=== PATIENT | male | born 1975 | race Caucasian/White ===

== ENCOUNTER 2023-06-17 17:04 | Emergency (ER) | payer OTHER, SELFPAY ==
[2023-06-17 17:19] VITALS: BP 158/79; PULSE 87; RESP 16; TEMP 37; O2SAT 99
--- NOTE | 2023-06-17 17:26 | ED.URI ---
HPI - URI/Sore Throat General Chief Complaint: Unspecified Stated Complaint: stiff neck / feels awful History of Present Illness HPI Narrative: PATIENT PRESENTS WITH UPPER RESPIRATORY SYMPTOMS GENERALIZED BODY ACHES AND LEFT-SIDED NECK PAIN. PATIENT HAS NOT TAKEN ANYTHING FOR HIS PAIN AND DISCOMFORT NO TYLENOL IBUPROFEN NOTHING [id number]. PATIENT STATES HE HAS SLEPT MOST OF THE DAY BUT HAS NO FEVER NO SHORTNESS OF BREATH NO CHEST PAIN. Related Data Allergies Allergy/AdvReac Type Severity Reaction Status Date / Time No Known Allergies Allergy Unverified 11/26/17 11:01 Review of Systems Review of Systems: CONSTITUTIONAL: DENIES CHILLS, OR SWEATS. REPORTS FEVER AND GENERALIZED BODY ACHES EYES: DENIES VISUAL CHANGES, REDNESS, OR DISCHARGE. ENT: DENIES OTALGIA. REPORTS NASAL CONGESTION RUNNY NOSE AND SORE THROAT CARDIOVASCULAR: DENIES CHEST PAIN, PALPITATIONS, OR EDEMA. RESPIRATORY: DENIES DYSPNEA. REPORTS OCCASIONAL COUGH GASTROINTESTINAL: DENIES ABDOMINAL PAIN, NAUSEA, VOMITING, OR DIARRHEA. GENITOURINARY: DENIES DYSURIA OR HEMATURIA. SKIN: DENIES RASH OR ITCHING. MUSCULOSKELETAL: DENIES BACK PAIN, JOINT PAIN, OR MYALGIA. REPORTS GENERALIZED BODY ACHES NEUROLOGIC: DENIES HEADACHE, NUMBNESS, OR WEAKNESS. PSYCHIATRIC: DENIES ANXIETY OR DEPRESSION. PMFSH Comments AT TIME OF SIGNATURE, AGREE WITH NURSING PAST MEDICAL, SURGICAL, SOCIAL AND FAMILY HISTORY. THERE IS NO RELEVANT FAMILY HISTORY PERTINENT TO THE PRESENTING COMPLAINT Exam Narrative: THE PATIENT IS A WELL-DEVELOPED, WELL-NOURISHED IN NO ACUTE DISTRESS. SKIN: SKIN IS WARM AND DRY WITHOUT ERYTHEMA, SWELLING OR EXUDATE. THERE IS GOOD TURGOR. NO TENTING. HEAD: ATRAUMATIC. NORMOCEPHALIC. NO TEMPORAL OR SCALP TENDERNESS. EYES: MOIST AND BRIGHT. SCLERA AND CONJUNCTIVAE NORMAL. NO DISCHARGE. PERRLA. EXTRAOCULAR MOTIONS INTACT. GROSS VISUAL ACUITY INTACT. EARS: PINNA IS NORMAL SHAPE AND CONTOUR. CLEAR EXTERNAL AUDITORY CANALS. TM PEARLY LINARES WITH GOOD CONE OF LIGHT, NO ERYTHEMA OR SUPPURATION. BILATERAL CERUMEN NOTED NO GROSS HEARING DEFICIT. NOSE: PINK, MOIST MUCOSA WITH GOOD AIR MOVEMENT. CLEAR RHINORRHEA WITHOUT NASAL FLARING. SEPTUM MIDLINE. MOUTH: MOIST MUCOUS MEMBRANES. THROAT; MILD ERYTHEMA NOTED TO POSTERIOR OROPHARYNX WITH MODERATE POSTNASAL DRAINAGE. WITHOUT EXUDATE OR ULCERATION.. UVULA MIDLINE. NORMAL MOVEMENT OF SOFT PALATE. NECK: SUPPLE AND NONTENDER WITH FULL RANGE OF MOTION WITHOUT DISCOMFORT. NO MENINGEAL SIGNS. PAIN TO LEFT SIDE OF NECK WITH MOVEMENT NORMAL NECK EXAM NO PARASPINAL TENDERNESS, NO VERTEBRAL TENDERNESS OR STEP OFFS. NO SWELLING. NORMAL ROM OF NECK. NORMAL UE STRENGTH AND SENSATION. LUNGS: EQUAL AND BILATERAL BREATH SOUNDS WITHOUT WHEEZES, RALES OR RHONCHI. CHEST: THE CHEST WALL IS WITHOUT RETRACTIONS OR USE OF ACCESSORY MUSCLES. HEART: HAS A REGULAR RATE AND RHYTHM WITHOUT MURMUR, GALLOPS, CLICK OR RUB. ABDOMEN: SOFT, NONTENDER WITH POSITIVE ACTIVE BOWEL SOUNDS. NO REBOUND TENDERNESS. EXTREMITIES: WITHOUT CYANOSIS, CLUBBING OR EDEMA. EQUAL 2+ DISTAL PULSES AND 2 SECOND CAPILLARY REFILL NOTED. NEUROLOGIC: ALERT, ACTIVE, . THE PATIENT MOVES ALL EXTREMITIES WITH NORMAL MUSCLE STRENGTH. NORMAL MUSCLE TONE IS NOTED. NORMAL COORDINATION IS NOTED. NO FOCAL NEUROLOGICAL FINDINGS NOTED. Course Course Level of Care: Express Care Visit Vital Signs Vital signs: Vital Signs Temperature 37.0 C 06/17/23 17:19 Pulse Rate 87 06/17/23 17:19 Respiratory Rate 16 06/17/23 17:19 Blood Pressure 158/79 H 06/17/23 17:19 Pulse Oximetry 99 06/17/23 17:19 Oxygen Delivery Room Air 06/17/23 17:19 Temperature 37.0 C 06/17/23 17:19 Pulse Rate 87 06/17/23 17:19 Respiratory Rate 16 06/17/23 17:19 Blood Pressure 158/79 H 06/17/23 17:19 Pulse Oximetry 99 06/17/23 17:19 Oxygen Delivery Room Air 06/17/23 17:19 PLEASE PHIL SCHEDULE A FOLLOWUP VISIT WITH YOUR PERSONAL PHYSICIAN FOR FURTHER EVALUATION AND TREATMENT. INCLU
== END 2023-06-17 17:33 | disposition home or self-care (01) ==
PROVIDERS: Emergency Provider Nurse Practitioner Family; PCP Family Medicine
DX: S16.1XXA Strain of muscle, fascia and tendon at neck level, initial encounter (principal); X58.XXXA Exposure to other specified factors, initial encounter
CPT/HCPCS: 99211; G0463

== ENCOUNTER 2025-02-08 18:02 | Emergency (ER) | payer OTHER, SELFPAY ==
--- NOTE | ~2025-02-08 | XR_ITS ---
EXAM: XR cervical spine 4-5V DATE: 02/08/2025 18:47 HISTORY: right posterior neck up to the back of his head . COMPARISON: None available. FINDINGS: Craniocervical association and atlantoaxial joint are aligned. No prevertebral soft tissue swelling. Mild degenerative change at the atlantodental interval 2 mm anterolisthesis at C4-5. 2 mm retrolisthesis at C5-6. Moderate degenerative disc disease at C5-6 and C6-7 with pronounced anterior osteophytes. Mild multilevel facet sclerosis. Moderate left neural foraminal narrowing at C5-6. The l ower right-sided neural foramina are poorly evaluated due to obliquity in the image. IMPRESSION: Minimal grade 1 listheses at C4-5 and C5-6. Moderate degenerative disc disease at C5-6 an d C6-7 with prominent osteophytes. Moderate left neural foraminal narrowing at C5-6 secondary to dege nerative facet and uncovertebral joint changes. Reviewed, dictated and finalized at location K. IMPRESSION: Minimal grade 1 listheses at C4-5 and C5-6. Moderate degenerative d isc disease at C5-6 and C6-7 with prominent osteophytes. Moderate left neural f oraminal narrowing at C5-6 secondary to degenerative facet and uncovertebral rodrgíuez int changes.
[2025-02-08 18:08] VITALS: BP 150/93; PULSE 88; RESP 20; TEMP 36.4; O2SAT 99
--- NOTE | 2025-02-08 18:28 | ED_ITS ---
HPI - Neck Pain/Injury General Chief Complaint: Neck Pain/Injury Stated Complaint: kink in neck Time Seen by Provider: 02/08/25 18:29 Source: patient, RN notes reviewed and old records reviewed Mode of arrival: ambulatory Limitations: no limitations History of Present Illness HPI Narrative: 49 year old male who presents to [facility] care with complaints of having pain to the left posterior neck base that radiated up to left back of his head going on the third week of pain.Patient reports that pain is also aggravated trying to turn his head to the left and looking up. Patient reports that he has been alternating Tylenol and Ibuprofen for his discomfort with minimal relief voiced. 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 Patient reports that he has not been able to sleep well for over 2 weeks due to the pain. Patient reports no specific injury to his neck. MD complaint: neck pain Onset (ago): week(s) (over 2 weeks) Radiation: head (up left side of back of head) Severity: moderate Treatments prior to arrival: acetaminophen and ibuprofen Related Data Home Medications ?Medication ?Instructions ?Recorded ?Confirmed ?Last Taken ?Type pantoprazole 40 mg tablet,delayed mg PO 02/08/25 Unknown History release Allergies Allergy/AdvReac Type Severity Reaction Status Date / Time No Known Allergies Allergy Verified 02/08/25 18:12 Review of Systems Review of Systems: CONSTITUTIONAL: Denies fever, chills, or sweats. EYES: Denies visual changes, redness, or discharge., no nystagmus ENT: Denies rhinorrhea, congestion, sore throat, or otalgia. CARDIOVASCULAR: Denies chest pain, palpitations, or edema. RESPIRATORY: Denies cough or dyspnea. GASTROINTESTINAL: Denies abdominal pain, nausea, vomiting, or diarrhea. GENITOURINARY: Denies dysuria or hematuria. SKIN: Denies rash or itching. MUSCULOSKELETAL: reports posterior cervical neck pain radiating up the back of his left side of posterior head, chronic shoulder pain, or myalgia. NEUROLOGIC: referred pain up the left back of his head,no numbness, or weakness. PSYCHIATRIC: Denies anxiety or depression. All systems reviewed & are unremarkable except as noted in HPI and below PMFSH Past Medical History Medical History (Updated 02/10/25 @ 17:36 by Lorna Joshi NP) GERD (gastroesophageal reflux disease) Social History Social History (Updated 02/10/25 @ 17:38 by Lorna Joshi NP) Smoking packs per day: 1 Smoking cigarettes per day: 20.0 Years smoked: 27 Smoking pack-years: 27.00 Smoking status: Current every day smoker Tobacco type: cigarettes Alcohol intake: current Alcohol use details: social Substance use type: does not use Living arrangements: with family Gender identity (if verbalized by the patient): Male Comments At time of signature, agree with nursing past medical, surgical, social and family history. There is no relevant family history pertinent to the presenting complaint Exam Narrative: GENERAL: Well-appearing, well-nourished, and in some acute distress. HEAD: Normocephalic, atraumatic. EYES: PERRLA and EOMI. ENT: Nares clear, no rhinorrhea or epistaxis. Mucous membranes moist.TM's normal throat pink with no swelling NECK: .no lymphadenopathy able to move in all directions with increased pain turning to left and looking upward CHEST: Clear to auscultation. No respiratory distress. no cough noted SAO2 99% on room air HEART: Regular rate and rhythm. No murmur heard. Normal peripheral pulses. ABDOMEN: Soft, nontender, nondistended, normal active bowel sounds.oted SAO2 99% on room air EXTREMITIES: Normal range of motion. No edema. SKIN: Warm, dry, no rash. NEURO: No focal deficits. Alert and oriented x3. Course Course Emergency Course: Patient is aware of diagnosis, understands and agrees to treatment plan.? Anticipatory guidance given.? Patient agrees to follow-up as directed and is aware of reasons to seek care at the emergency department. Portions of this record may have been created with voice recognition software Level of Care: Express Care Visit Vital Signs Vital signs: Vital Signs Temperature 36.4 C 02/08/25 18:08 Pulse Rate 88 02/08/25 18:08 Respiratory Rate 20 02/08/25 18:08 Blood Pressure 150/93 H 02/08/25 18:08 Pulse Oximetry 99 02/08/25 18:08 Oxygen Delivery Room Air 02/08/25 18:08 Temperature 36.4 C 02/08/25 18:08 Pulse Rate 88 02/08/25 18:08 Respiratory Rate 20 02/08/25 18:08 Blood Pressure 150/93 H 02/08/25 18:08 Pulse Oximetry 99 02/08/25 18:08 Oxygen Delivery Room Air 02/08/25 18:08 Reviewed MDM - Neck Pain/Injury MDM Narrative Medical decision making narrative: Discussed X-ray findings with patient and recommended patient contact his PCP for orders for further CT scan or MRI of his neck. Differential Diagnosis Differential diagnosis: Likely disc disorder of cervical region, cervical radiculopathy, cervical spondylosis, strain of neck muscle and other (cervical neck pain) Medical Records Attestation: I reviewed the patient's medical records. Imaging Data Attestation: I personally reviewed and interpreted this imaging study as follows: My impression: Moderate degenerative changes to cervical spine,listhesis C4-5, C5-6.. neural foraminal narrowing C5-6 Radiologist's impression: [facility] [place] [id number] XRay Report Signed Patient: Juan Merida : 1975 MR#: [id number] Age: 49 Acct:[id number] Loc: [facility] ADM Date: 02/08/25Attending Dr: Ordering Physician: Lorna Joshi APRN Date of Service: 02/08/25 Procedure(s): XR cervical spine 4-5V Accession Number(s): [id number] cc: Brent, Dillon Rothman MD; Lorna Joshi APRN~ EXAM: XR cervical spine 4-5V DATE: 02/08/2025 18:47 HISTORY: right posterior neck up to the back of his head . COMPARISON: None available. FINDINGS: Craniocervical association and atlantoaxial joint are aligned. No prevertebral soft tissue swelling. Mild degenerative change at the atlantodental interval 2 mm anterolisthesis at C4-5. 2 mm retrolisthesis at C5-6. Moderate degenerative disc disease at C5-6 and C6-7 with pronounced anterior osteophytes. Mild multilevel facet sclerosis. Moderate left neural foraminal narrowing at C5- 6. The lower right-sided neural foramina are poorly evaluated due to obliquity in the image. IMPRESSION: Minimal grade 1 listheses at C4-5 and C5-6. Moderate degenerative disc disease at C5-6 and C6-7 with prominent osteophytes. Moderate left neural foraminal narrowing at C5-6 secondary to degenerative facet and uncovertebral joint changes. Reviewed, dictated and finalized at location K. Please be advised this is a medical document. It is intended for [id number] communication. It is written in medical language and may contain unfamiliar abbreviations or verbiage. Medical documents are intended to carry relevant information, facts as evident, and the clinical opinion of the practitioner at the time of the encounter. This report may have been done utilizing a voice recognition system. Attempts have been made to correct errors. However, there may be uncorrected grammatical, spelling, and recognition errors present. The file time of this note does not necessarily represent the time of service. Dictated By: Leonid Chinchilla MD 02/08/251944 Signed By: <Electronically signed by Leonid Chinchilla MD in OV> Critical Care Time Critical Care Time Critical Care Time: No Discharge Plan Discharge Clinical Impression: Disc disorder of cervical region, Neural foraminal stenosis of cervical spine Patient Disposition: Home, Self-Care Condition: Stable Instructions: Degenerative Disc Disease (ED) Additional Instructions: Ice and heat to the area for 20-30 minutes Gentle stretching exercises Gentle massage Caution with lifting, bending, stooping, twisting Avoid pushing, pulling take muscle relaxants as directed--caution drowsiness and no driving or alcohol Anti-inflammatory medicine as directed--take with food He may take the muscle relaxant and anti-inflammatory at the same time Follow-up with your PCP if not improving in 2-[address] Kennedy in the a.m. Patient Language: Swedish Prescriptions: New cyclobenzaprine 10 mg tablet 10 mg PO TID PRN (Reason: muscle spasm) Qty: 20 0RF Rx Instructions: can not drive or operate machinery wile taking absolutely no alcohol with this medication prednisone 20 mg tablet 40 mg PO DAILY 5 Days Qty: 10 0RF Rx Instructions: take in am with food No Action pantoprazole 40 mg tablet,delayed release (DR/EC) PO Follow-up/Referrals: Harms,Dillon Rothman M.D. [Primary Care Provider] - Time of Disposition: 20:07 Quality [place] Coma Scale Eyes: Open Verbal: Oriented and Alert Motor: Follows Commands [place] Coma Total Score: 15
--- OUTSIDE RECORDS SUMMARY | 2025-02-08 19:23 | XMS_ITS | Clinical Summary ---
Author Organization [facility] [address] [facility] lt Address [address] [place] [address] Care Team Providers Care Supervising Architect Name Role Phone Dillon Kennedy MD Primary Care Provider [phone] Alicia Seay PT Unavailable Unavailable Allergies No known active allergies Medications pantoprazole DR (PROTONIX) 40 mg EC tablet Take 1 tablet (40 mg total) by mouth daily 90 tablet 4 01/07/2025 6 Active Active Problems Problem Noted Date Diagnosed Date Annual physical exam 01/07/2025 Assessment & Plan (01/07/2025 3:11 PM YARN PACKER): Visit preventive in nature. We reviewed medications, chronic conditions, risk factors, lifestyle recommendations. Reviewed immunization recommendations. Follow-up in 1 year for annual wellness. Prediabetes 01/07/2025 Assessment & Plan (01/07/2025 3:11 PM YARN PACKER): Reviewed prediabetes. Reviewed lifestyle recommendations. Patient information printed for his reference. Will recheck A1c upon return. Acute pain of right knee 01/07/2025 Assessment & Plan (01/07/2025 3:15 PM YARN PACKER): Recommend x-ray and physical therapy. Also offered referral to warehouse distribution specialist. He declines today. States he will work on conservative measures at home. If not improving or worsening he is agreeable to follow up with warehouse distribution specialist. We went ahead and place a referral so he will have it available p.r.n.. Need for influenza vaccination 09/26/2020 Assessment & Plan (09/26/2020 3:33 PM CDT): Flu vaccine given today. Discussed possible tenderness/redness at injection site. Gastroesophageal reflux disease without esophagi tis 06/19/2020 Assessment & Plan (01/07/2025 3:10 PM YARN PACKER): Has been well controlled on pantoprazole. For some reason was switched to Prevacid due to his insurance apparently. Of course we reviewed lifestyle recommendations. Will send in pantoprazole and see if he can get it at an affordable ruth. Assessment & Plan (12/27/2023 9:17 AM YARN PACKER): Symptoms well controlled with pantoprazole 40 mg daily. EGD completed last year Assessment & Plan (09/26/2020 3:54 PM CDT): Improvement in GERD noted w/diet changes to lower cholesterol. remains on pantapraole Assessment & Plan (06/19/2020 8:40 AM CDT): Reports relief of symptoms w/current pantoprazole. Stressed need to stop smoking Reviewed provocative foods to avoid: caffeine, citrus, ETOH, carbonated drinks, fried/fatty/fast foods & rich/creamy sauces. Reviewed diet/exercise recommendations: 20-30min physicaly activity daily at minimum. Reviewed med Ses & scheduling. Keep HOB elevated 30 degrees & not eat 2-3 hrs before bedtime. Lipid screening 06/17/2020 Assessment & Plan (12/27/2023 9:17 AM YARN PACKER): Reviewed previous lipid panel, will check fasting labs notify patient of results once received. Assessment & Plan (09/26/2020 3:55 PM CDT): 11/19/17 XW=307 HDL=41 OA=118 FOT=025 TC/HDL=5.5 06/17/20 GN=171 HDL=41 AX=545 MSN=643 TC/HDL=6.2 09/20/20 CY=108 HDL=51 VI=989 NJC=419 TC/HDL=4.6 The 10-year ASCVD risk score (Wilmingtonjesse VARGHESE Jr., et al., 2013) is: 9.2% Values used to calculate the score: Age: 45 years Sex: Male Is Non- : No Diabetic: No Tobacco smoker: Yes Systolic Blood Pressure: 128 mmHg Is BP treated: No HDL Cholesterol: 40 mg/dL Total Cholesterol: 234 mg/dL Copy of results as well as written explanation. Great improvement in lipid panel. Will continue with diet changes. Aware that he is still abnormal on most readings. Great improvement in HDL. Will rtc in 6 mos for recheck. No family h/o CAD. Assessment & Plan (06/19/2020 8:41 AM CDT): 11/19/17 OA=538 HDL=41 FP=363 JQX=105 TC/HDL=5.5 06/17/20 WP=620 HDL=41 DX=267 OOE=063 TC/HDL=6.2 EVF=778 Reviewed POCT results from today. Lipid panel abnormal. Reviewed lifestye/dietary changes necessary to improve. Discussed statin therapy if no improvement in 3 mos. Lab req given for him to repeat labs in 3 mos. BMI 28.0-28.9,adult 06/17/2020 Assessment & Plan (12/27/2023 9:17 AM YARN PACKER): Stable encouraged healthy diet and regular exercise. Assessment & Plan (09/26/2020 3:34 PM CDT): Reviewed need to lose weight, reviewed health benefits. Reviewed recommendations for daily intake & activity 20-30 minutes/day. Discussed healthy diet and importance of regular physical activity. Down 10# since 12/2019 Assessment & Plan (06/19/2020 8:39 AM CDT): Discussed healthy diet and importance of regular physical activity. BMI is acceptable for this patient. Tobacco dependence due to cigarettes 01/07/2019 Assessment & Plan (01/07/2025 3:09 PM YARN PACKER): Encouraged cutting back. Quit alcohol and will work on tobacco maybe later this year. Assessment & Plan (12/27/2023 9:17 AM YARN PACKER): Pre contemplative. Discussed nicotine replacement options and medications. Encouraged patient to reach out to the office when he is ready to quit and can prescribe Wellbutrin. Also encouraged use of nicotine replacement products to decrease amount of cigarettes smoked. Smoking history 20 pack years Assessment & Plan (09/25/2020 10:57 PM CDT): Precontemplative. Encouraged complete smoking cessation. Discussed different types of medications & zoyg-dnh-grisbff aides to help with cessation. Assessment & Plan (06/19/2020 8:41 AM CDT): Precontemplative. Encouraged complete smoking cessation. Discussed different types of medications & kxft-rvl-[id number] aides to help with cessation. Resolved Problems Problem Noted Date Diagnosed Date Resolved Date Heartburn 12/02/1994 06/19/2020 Overview (03/08/2017): Heartburn Encounters Date Type Department Care Team Description 01/07/2025 2:30 PM YARN PACKER Office Visit [facility] [address] [phone] Bettie Edward NP Annual physical exam (Primary Dx); Need for influenza vaccination; Gastroesophageal reflux disease without esophagitis; BMI 28.0-28.9,adult; Tobacco dependence due to cigarettes; Prediabetes; Acute pain of right knee 01/01/2025 8:15 AM YARN PACKER Lab [facility] [address] [place] [id number] Lipid screening; Routine general medical examination at health care facility 12/28/2024 Telephone [facility] [address] [phone] Sandy Gomez MA Labs Requested for Appointment 12/22/2024 Telephone [facility] [address] [phone] Sandy Gomez MA Labs Needed for Appointment from Last 3 Months Immunizations Immunization Administration Dates Next Due Influenza, Quadrivalent, Spl it, Preservative Free, Intramuscular 09/26/2020,12/16/2019,09/18/2018,09/17 Influenza, Trivalent, Preser vative Free, Intramuscular 01/07/2025 Influenza, Unspecified 12/27/2023(Deferr ed: Patient Refused),09/01/2023(Deferred: Patient Refused),09/01/2022(Deferred: Patient Refused),09/01/2021,10/31/2018, 018,12/03/2017(Deferred: Patient Refused),09/01/2017,09/01/2017, 017(Deferred: Patient Refused) Pneumococcal Polysaccharide PPV23 04/03/2022(Def erred: Patient Refused) Tdap 02/19/2023,05/08/2019,10/19/2016 Surgical History Surgery Date Site/Laterality Comments COLONOSCOPY 01/11/2023 FEMUR FRACTURE SURGERY 12/02/1987 - 12/01/1988 Left Medical History Medical History Date Comments Gastroesophageal reflux disease 1994 GERD; Comments: TRE 11/10/2015 - Family History Medical History Relation Name Comments Other Father 2 murdered; Cause of : murdered Brain cancer Mother 2 Cancer, brain; Cause of : Cancer, brain Ovarian cancer Mother 2 Cancer, ovari an; Cause of : Cancer, ovarian Relation Name Status Comments Father 1 Father 2 Mother 1 Mother 2 Social History Tobacco Use Types Packs/Day Years Used Date Smoking Tobacco: Heavy Smoker Cigarettes 1 20 Smokeless Tobacco: Never Tobacco Cessation:Ready to Q uit: Not Asked; Counseling Given: Not Answered Comments:Smoking History Packs/day: 1 Packs Alcohol Use Standard Drinks/Week Comments Yes 0 (1 standard drink = 0.6 oz pur e alcohol) couple times a month AUDIT-C Answer Date Recorded Q1: How often do you have a drink containing alc ohol? Monthly or less 01/11/2023 Q2: How many drinks containi ng alcohol do you have on a typical day when you are drinking? 1 or 2 01/11/2023 Q3: How often do you have si x or more drinks on one occasion? Never 01/11/2023 PHQ-2 Answer Date Recorded PHQ-2 Total Score (If total score is 3 or more points, staff should administer the PHQ-9) 0 01/07/2025 Personal Safety Answer Date Recorded Getting School Help Needed Denies 11/13 Sex and Gender Information Value Date Recorded Sex Assigned at Not on file Legal Sex Male 6:28 PM YARN PACKER Gender Identity Not on file Sexual Orientation Not on file Obstetrics History Last Filed Vital Signs Vital Sign Reading Time Taken Comments Blood Pressure 128/78 01/07/2025 2:10 PM YARN PACKER Pulse 102 01/07/2025 2:10 PM YARN PACKER Temperature 36.1 C (96.9 F) 01/07/2025 2:10 PM YARN PACKER Respiratory Rate 20 01/07/2025 2:10 PM YARN PACKER Oxygen Saturation 96% 01/07/2025 2:10 PM YARN PACKER Inhaled Oxygen Concentration - - Weight 86.4 kg (190 lb 6.4 oz) 01/07/2025 2:10 P M YARN PACKER Height 175.3 cm (5' 9.02 ) 01/07/2025 2:10 PM CS T Body Mass Index 28.1 01/07/2025 2:10 PM YARN PACKER Plan of Treatment Health Maintenance Due Date Last Done Comments Hepatitis C Screening 1975 Hepatitis B Screening 1993 Pneumococcal vaccine <65 (1 of 2 - PCV) 1994 Depression Screening 01/07/2026 01/07/2025, 12/27/2023, 04/03/2022, Additional history exists Regular Well Visit/Exam 18-64 01/07/2026 01/07/2025, 04/03/2022 Colon Cancer Screening-Colonoscopy 01/11/20332022 DTaP/Tdap/Td Vaccine (4 - Td or Tdap) 02/19/2033 02/19/2023, 05/08/2019, 10/19/2016 Influenza Vaccine Completed 01/07/2025, , 09/26/2020, Additional history exists Procedures Procedure Name Priority Date/Time Associated Diagnosis Comments POCT HEMOGLOBIN A1C Routine 01/07/2025 2 :50 PM YARN PACKER Prediabetes EGFR Routine 01/01/2025 8:25 AM YARN PACKER Lipid screening Routine general medical examination at [facility] care facility DIFFERENTIAL AUTO Routine 01/01/2025 8:2 5 AM YARN PACKER Lipid screening Routine general medical examination at health care facility CBC WITH AUTO DIFFERENTIAL Routine 01/01/2025 8:25 AM YARN PACKER Lipid screening Routine general medical examination at [facility] facility COMPREHENSIVE METABOLIC PANEL Routine 01/01/2025 8:25 AM YARN PACKER Lipid screening Routine general medical examination at [facility] care facility LIPID PANEL Routine 01/01/2025 8:25 AM YARN PACKER Lipid screening Routine general medical examination at [facility] care facility COLONOSCOPY 01/11/2023 9:17 AM YARN PACKER from Last 3 Months or Most Recently Relevant to Health Maintenance Results * POCT hemoglobin A1c (01/07/2025 2:50 PM YARN PACKER) Hemoglobin A1C, POC 5.6 4.0 - 5.6 % Capillary blood 01/07/2025 2 :50 PM YARN PACKER Bettie Edward NP POINT OF CARE TEST ORDERAB LES Final Result * eGFR (01/01/2025 8:25 AM YARN PACKER) eGFR 83 >=60 mL/min/1. 73 m2 Comment: Interpretive Data Reference Interval Normal >/= 90 mL/min/1.73m2 Mildly decreased* 60 - 89 mL/min/1.73m2 Mildly to moderately decreased 45 - 59 mL/min/1.73m2 Moderately to severely decreased 30 - 44 mL/min/1.73m2 Severely decreased 15 - 29 mL/min/1.73m2 Kidney Failure < 15 mL/min/1.73m2 *Relative to young adult level Estimated glomerular filtration rate is determined by the 2020 CKD-EPI equation recommended by the National Kidney Foundation (A Unifying Approach to GFR Estimation: Recommendations of the NKF-ASK Task Force on Reassessing the Inclusion of Race in Diagnosing Kidney Disease, JASN 2020). The CKD-EPI equation should not be used for patients with unstable renal function and has not been validated in children and those over 70. Current interpretive data was last reviewed 2021. Testing performed by: [facility], [address] [place] [address]., [address] Blood 01/01/2025 8:2 5 AM YARN PACKER 01/01/2025 12:40 PM YARN PACKER Bettie Edward AUTOMOTIVE TITLE CLERK LAB BLOOD ORDERABLES Final Result [facility] ([place]) [facility] [place] [address] * Differential, auto (01/01/2025 8:25 AM YARN PACKER) Neutrophil abs 6.0 1.5 - 6.5 K/cumm Comment:Testing performed by : [address] [address] Imm gran abs 0.0 0.0 - 0.1 K/cumm [facility] ([place]) Comment:Testing performed by : [facility], [address] [place] [address]., [address] Lymphocyte abs 2.3 0.8 - 3.3 K/cumm [facility] ([place]) Comment:Testing performed by : [address] [address] Monocyte abs 0.7 0.2 - 0.8 K/cumm [facility] ([place]) Comment:Testing performed by : [address] [address] Eosinophil abs 0.2 0.0 - 0.5 K/cumm [facility] ([place]) Comment:Testing performed by : [address] [address] Basophil abs 0.1 0.0 - 0.1 K/cumm [facility] ([place]) Comment:Testing performed by : [address] [address] Neutrophil pct 65.5 % [facility] ([place]) Comment: Interpretive Data Percent cell count reference ranges are not reported, since discordance with absolute values may lead to misinterpretation of CBC data. Current Interpretive Data was last revised on 2018. Testing performed by: [facility], [address] [place] [address]., [address] Imm gran pct 0.4 % [facility] ([place]) Comment: Interpretive Data Percent cell count reference ranges are not reported, since discordance with absolute values may lead to misinterpretation of CBC data. Current Interpretive Data was last revised on 2018. Testing performed by: [facility], [address] [place] [address]., [address] Lymphocyte pct 24.8 % [facility] ([place]) Comment: Interpretive Data Percent cell count reference ranges are not reported, since discordance with absolute values may lead to misinterpretation of CBC data. Current Interpretive Data was last revised on 2018. Testing performed by: [facility], [address] [place] [address]., [address] Monocyte pct 7.2 % [facility] ([place]) Comment: Interpretive Data Percent cell count reference ranges are not reported, since discordance with absolute values may lead to misinterpretation of CBC data. Current Interpretive Data was last revised on 2018. Testing performed by: [facility], [address] [place] [address]., [address] Eosinophil pct 1.6 % [facility] ([place]) Comment: Interpretive Data Percent cell count reference ranges are not reported, since discordance with absolute values may lead to misinterpretation of CBC data. Current Interpretive Data was last revised on 2018. Testing performed by: [facility], [address] [place] [address]., [address] Basophil pct 0.5 % [facility] ([place]) Comment: Interpretive Data Percent cell count reference ranges are not reported, since discordance with absolute values may lead to misinterpretation of CBC data. Current Interpretive Data was last revised on 2018. Testing performed by: [address] [address] Blood 01/01/2025 8:25 AM YARN PACKER 01/01/2025 12:29 PM YARN PACKER us Bettie Edward NP LAB BLOOD ORDERABLES Final Result [facility] ([place]) [facility] [place] [address] * CBC with auto differential (01/01/2025 8:25 AM YARN PACKER) [facility] WBC 9.2 3.8 - 9.9 K/cumm Comment:Testing performed by : [address], [address] Hgb 16.0 13.0 - 17.5 g/dL [facility] ([place]) Comment:Testing performed by : [facility], [address] [place] [address], [address] Hct 48.7 38.9 - 50.3 % [facility] ([place]) Comment:Testing performed by : [address], [address] Plt 383 150 - 400 K/cumm [facility] ([place]) Comment:Testing performed by : [address], [address] MPV 10.0 9.1 - 12.3 fL [facility] ([place]) Comment:Testing performed by : [address], [address] RBC 5.38 4.30 - 5.80 M/cumm [facility] ([place]) Comment:Testing performed by : [address], [address] MCV 90.5 81.3 - 96.4 fL [facility] ([place]) Comment:Testing performed by : [address], [address] MCH 29.7 27.1 - 33.3 pg [facility] ([place]) Comment:Testing performed by : [address], [address] MCHC 32.9 32.3 - 35.7 g/dL [facility] ([place]) Comment:Testing performed by : [address], [address] RDW CV 12.2 11.1 - 14.9 % [facility] ([place]) Comment:Testing performed by : [address], [address] RDW SD 40.4 35.7 - 48.1 fL [facility] ([place]) Comment:Testing performed by : [facility], [address] [place] [address]., [address] NRBC abs 0.00 0.00 - 0.01 K/cumm [facility] ([place]) Comment:Testing performed by : [facility], [address] [place] [address]., [address] Blood 01/01/2025 8:25 AM YARN PACKER 01/01/2025 12:29 PM YARN PACKER Bettie Edward NP LAB BLOOD ORDERABLES Final Result [facility] ([place]) 1 [facility] [place] [address] * (ABNORMAL) Lipid panel (01/01/2025 8:25 AM YARN PACKER) Cholesterol 184 30 - 199 mg/dL Comment: Interpretive Data Ages < or = 19 years Acceptable: <170 mg/dL Borderline high: 170-199 mg/dL High: >or= 200 mg/dL Ages > or = 20 years Desirable: <200 mg/dL Borderline high: 200-239 mg/dL High: >or= 240 mg/dL Literature References: 1. Expert Panel on Integrated Guidelines for Cardiovascular Health and Risk Reduction in Children and Adolescents. Pediatrics 2011;128:S213 2. NCEP Expert Panel. Circulation 2004;110:227 Current Interpretive Data was last revised on 2018. Testing performed by: [facility], [address] [place] [address]., [address] Triglycerides 152(H) <=149 mg/dL [facility] ([place]) Comment: Interpretive Data Ages < or = 9 years Acceptable: <75 mg/dL Borderline high: 75-99 mg/dL High: >or= 100 mg/dL Ages 10 to 20 years Acceptable: <90 mg/dL Borderline high: 90-129 mg/dL High: >or= 130 mg/dL Ages > or = 20 years Desirable: <150 mg/dL Borderline high: 150-199 mg/dL High: 200-499 mg/dL Very high: >or= 499 mg/dL Literature References: 1. Expert Panel on Integrated Guidelines for Cardiovascular Health and Risk Reduction in Children and Adolescents. Pediatrics 2011;128:S213 2. NCEP Expert Panel. Circulation 2004;110:227 Current Interpretive Data was last revised on 2018. Testing performed by: [facility], [address] [place] [address]., [address] HDL 32(L) >=40 mg/dL [facility] ([place]) Comment: Interpretive Data Ages < or = 19 years Acceptable: >45 mg/dL Borderline low: 40-45 mg/dL Low: <40 mg/dL Ages > or = 20 years Desirable: >or= 60 mg/dL Low: <40 mg/dL Literature References: 1. Expert Panel on Integrated Guidelines for Cardiovascular Health and Risk Reduction in Children and Adolescents. Pediatrics 2011;128:S213 2. NCEP Expert Panel. Circulation 2004;110:227 Current Interpretive Data was last revised on 2018. Testing performed by: [address] [address] LDL, calculated 125 <=129 mg/dL [facility] ([place]) Comment: Interpretive Data Ages < or = 19 years Acceptable: <110 mg/dL Borderline high: 110-129 mg/dL High: >or= 130 mg/dL Ages > or = 20 years Optimal: <100 mg/dL Near optimal: 100-129 mg/dL Borderline high: 130-159 mg/dL High: >160 mg/dL Calculated using the Miles LDL-C estimating equation. This equation was implemented on 2024. Prior to this date LDL-C was estimated using the Friedewald equation. Literature References: 1. Expert Panel on Integrated Guidelines for Cardiovascular Health and Risk Reduction in Children and Adolescents. Pediatrics 2011;128:S213 2. NCEP Expert Panel. Circulation 2004;110:227 3. Miles Queen al. YANIV Cardiol. 2020 April 01;5(5):540-548. doi: 10.1001/jamacardio.2020.0013 Current Interpretive Data was last revised on 2024. Testing performed by: [address] [address] Non-HDL Cholesterol 152 mg/dL [facility] ([place]) Comment: Interpretive Data Ages < or = 19 years Acceptable: <120 mg/dL Borderline high: 120-144 mg/dL High: >145 mg/dL Ages > or = 20 years When triglycerides are >200 mg/dL, Non-HDL cholesterol is a secondary target of therapy with treatment goals that are 30 mg/dL greater than the LDL cholesterol target. Literature References: 1. Expert Panel on Integrated Guidelines for Cardiovascular Health and Risk Reduction in Children and Adolescents. Pediatrics 2011;128:S213 2. NCEP Expert Panel. Circulation 2004;110:227 Current Interpretive Data was last revised on 2018. Testing performed by: [address] [address] Chol/HDL ratio 6 [facility] ([place]) Comment:Testing performed by : [address], [address] Blood 01/01/2025 8:25 AM YARN PACKER 01/01/2025 12:29 PM YARN PACKER us Bettie Edward AUTOMOTIVE TITLE CLERK LAB BLOOD ORDERABLES Final Result [facility] ([place]) 1 [facility] [place] [address] * Comprehensive metabolic panel (01/01/2025 8:25 AM YARN PACKER) Sodium 139 135 - 145 mmol/L Comment:Testing performed by : [address] [address] Potassium, pl 4.4 3.3 - 4.9 mmol/L [facility] ([place]) Comment:Testing performed by : [address] [address] Chloride 101 97 - 110 mmol/L [facility] ([place]) Comment:Testing performed by : [address], [address] CO2 26 22 - 32 mmol/L [facility] ([place]) Comment:Testing performed by : [address], [address] Anion gap 12 2 - 15 mmol/L [facility] ([place]) Comment:Testing performed by : [address], [address] BUN 19 6 - 25 mg/dL [facility] ([place]) Comment:Testing performed by : [address] [address] Creatinine 1.09 0.80 - 1.30 mg/dL [facility] ([place]) Comment:Testing performed by : [address], [address] Glucose 112 70 - 199 mg/dL [facility] ([place]) Comment: Interpretive Data Fasting glucose >/= 126 mg/dl is diagnostic for diabetes. Fasting is defined as no caloric intake for at least 8 hours. Fasting glucose between 100 mg/dl to 125 mg/dl is diagnostic of prediabetes. In a patient with classic symptoms of hyperglycemia or hyperglycemic crisis, a random glucose >/= 200 mg/dl is diagnostic for diabetes. In the absence of unequivocal hyperglycemia, results should be confirmed by repeat testing. The classification and Diagnosis of Diabetes Diabetes Care 2021; 46: S19-S40. Current interpretive data was last revised 2022. Testing performed by: [address], [address] Calcium 9.4 8.5 - 10.3 mg/dL [facility] ([place]) Comment:Testing performed by : [address], [address] Bilirubin, total 0.3 0.1 - 1.2 mg/dL [facility] ([place]) Comment:Testing performed by : [address], [address] Protein, pl 7.2 6.5 - 8.5 g/dL [facility] ([place]) Comment:Testing performed by : [address], [address] Albumin 4.2 3.5 - 5.0 g/dL [facility] ([place]) Comment:Testing performed by : [address], [address] Alk phos 96 40 - 130 Units/L [facility] ([place]) Comment:Testing performed by : [address], [address] ALT 25 7 - 55 Units/L [facility] ([place]) Comment:Testing performed by : [address], [address] AST 26 10 - 50 Units/L [facility] ([place]) Comment:Testing performed by : [facility], [address] [facility], [place]., [address] Blood 01/01/2025 8:25 AM YARN PACKER 01/01/2025 12:29 PM YARN PACKER Bettie Edward AUTOMOTIVE TITLE CLERK LAB BLOOD ORDERABLES Final Result [facility] ([place]) [facility] [place] [address] * COLONOSCOPY (01/11/2023 9:17 AM YARN PACKER) Anatomical Region Laterality Modality Other Narrative Procedure Note Makayla Oliver MD - 01/11/2023 9:17 AM CST [facility] Patient Name: Juan Merida Procedure Date: 01/11/2023 9:17 AM Date of : 1975 Admit Type: Outpatient Age: 47 Gender: Male Attending MD: Makayla Oliver M.D. Room: [facility] ENDOSCOPY ROOM 1 Note Status: Finalized Patient Profile: This is a 47 year old male. No family history ofcolon cancer. Screening. Procedure: Colonoscopy Indications: Screening for colorectal malignant neoplasm, Thisis the patient's first colonoscopy Referring MD: Dillon Kennedy M.D. Providers: Makayla Oliver M.D. Impression: - The entire examined colon is normal. - Internal hemorrhoids. - No specimens collected. Recommendation: - Repeat colonoscopy in 10 years for screening purposes. Medicines: Monitored Anesthesia Care Complications: No immediate complications. Estimated Blood Loss: Estimated blood loss: none. Procedure: Pre-Anesthesia Assessment: - Prior to the procedure, a History and Physicalwas performed, and patient medications and allergieswere reviewed. The patient's tolerance of previous anesthesia was also reviewed. The risks andbenefits of the procedure and the sedation options and risks were discussed with the patient. All questions were answered, and informed consent was obtained. Prior Anticoagulants: The patient has taken noanticoagulant or antiplatelet agents. ASA Grade Assessment: II -A patient with mild systemic disease. After reviewing the risks and benefits, the patient was deemed in satisfactory condition to undergo the procedure. The benefits, risks and alternatives of theprocedure and sedation were discussed and informed consentwas obtained. All questions were answered. Please referto the signed informed consent document in the medical record. The bowel preparation used was Miralax via split dose instruction. The bowel preparation usedwas bisacodyl tablets via split dose instruction. The scope was passed under direct vision. TheColonoscope [id number] was introduced through the anus and advanced to the the cecum, identified by appendiceal orifice and ileocecal valve. Thequality of the bowel preparation was good. Bowel prep was administered using a split dose. Findings: The perianal and digital rectal examinations were normal. The cecum appeared normal. The colon (entire examined portion) appeared normal. No polyps and no mass lesions noted. Internal hemorrhoids were found during retroflexion. The hemorrhoids were medium-sized. Electronically signed by Ahmad Karadaghy, M.D. Makayla Oliver M.D. 01/11/2023 11:35:21 AM Number of Addenda: 0 Note Initiated On: 01/11/2023 9:17 AM Procedure Code(s): --- Professional --- 93473, Colonoscopy, flexible; diagnostic, including collection of specimen(s) by brushing or washing, when performed (separateprocedure) Diagnosis Code(s): --- Professional --- Z12.11, Encounter for screening for malignant neoplasm of colon K64.8, Other hemorrhoids CPT copyright 2020 [employer]. All rights reserved. The codes documented in this report are preliminary and upon repair order clerk reviewmay be revised to meet current compliance requirements. Recognized by the [employer] for promoting quality in endoscopy Makayla Oliver MD ENDOSCOPY PROCEDURES Final Result from Last 3 Months or Most Recently Relevant to Health Maintenance [facility] [place] [address] [employer] H[employer]/POS Advance Directives For more information, please contact: [phone] * Full Code (Latest Code Status on File) Date Activated Date Inactivated Comments 01/11/2023 9:36 AM 01/11/2023 4:34 PM * Full Code Date Activated Date Inactivated Comments 01/11/2023 9:35 AM 01/11/2023 9:36 AM Care Teams Supervising Architect Relationship Specialty Start Date End Date [place] [id number] PCP - General 11/22/15 Alicia Seay, PT Physical Therapist Physical Therapy 12/30/17
--- OUTSIDE RECORDS SUMMARY | 2025-02-08 19:24 | XMS_ITS | Clinical Summary ---
Author Organization [facility] Address [address] [place] [address] Phone Care Team Providers Care Board Design Engineer Name Role Phone Dillon Kennedy MD Primary Care Provider [phone] Medications No known medications Immunizations Immunization Administration Dates Next Due TDAP Vaccine 02/19/2023 Social History Tobacco Use Types Packs/Day Years Used Date Smoking Tobacco: Every Day Cigarettes Smokeless Tobacco: Never Tobacco Cessation:Ready to Q uit: Not Asked; Counseling Given: Not Answered Sex and Gender Information Value Date Recorded Sex Assigned at Not on file Legal Sex Male 11:09 PM CDT Gender Identity Not on file Sexual Orientation Not on file Last Filed Vital Signs Vital Sign Reading Time Taken Comments Blood Pressure 147/87 02/19/2023 8:12 AM CDT Pulse 86 02/19/2023 8:12 AM CDT Temperature 36.4 C (97.6 F) 02/19/2023 6:33 AM CDT Respiratory Rate 16 02/19/2023 8:12 AM CDT Oxygen Saturation 97% 02/19/2023 8:12 AM CDT Inhaled Oxygen Concentration - - Weight 83.9 kg (185 lb) 02/19/2023 6:33 AM CDT Height 175.3 cm (5' 9 ) 02/19/2023 6:33 AM CDT Body Mass Index 27.32 02/19/2023 6:33 AM CDT Plan of Treatment Not on file Insurance MEDICAID [employer] Care Teams Board Design Engineer Relationship Specialty Start Date End Date Dillon Kennedy MD [address] [id number] PCP - General Internal Medicine 02/19/23
--- OUTSIDE RECORDS SUMMARY | 2025-02-08 19:24 | XMS_ITS | Encounter Summary ---
Author Organization [facility] Address 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
--- OUTSIDE RECORDS SUMMARY | 2025-02-08 19:24 | XMS_ITS | Referral Summary ---
Author Organization [facility] [place] [address] [facility] lto Address [address] [place] [address] Care Team Providers Care Care Process Manager Name Role Phone Dillon Kennedy MD Primary Care Provider [phone] Alicia Seay PT Unavailable Unavailable Encounters Date Type Department Care Team Description 01/07/2025 2:30 PM SITE SUPERVISING TECHNICAL OPERATOR [facility] Visit [facility] [address] [address] Bettie Edward NP Annual physical exam (Primary Dx); Need for influenza vaccination; Gastroesophageal reflux disease without esophagitis; BMI 28.0-28.9,adult; Tobacco dependence due to cigarettes; Prediabetes; Acute pain of right knee 01/01/2025 8:15 AM SITE SUPERVISING TECHNICAL OPERATOR Lab [facility] [address] [place] [address] Lipid screening; Routine general medical examination at health care facility 12/28/2024 Telephone [facility] [address] [address] Sandy Gomez MA Labs Requested for Appointment 12/22/2024 Telephone [facility] [address] [address] Sandy Gomez MA Labs Needed for Appointment from Last 3 Months Allergies No known active allergies Medications pantoprazole DR (PROTONIX) 40 mg EC tablet Take 1 tablet (40 mg total) by mouth daily 90 tablet 4 01/07/2025 6 Active Active Problems Problem Noted Date Diagnosed Date Annual physical exam 01/07/2025 Assessment & Plan (01/07/2025 3:11 PM SITE SUPERVISING TECHNICAL OPERATOR): Visit preventive in nature. We reviewed medications, chronic conditions, risk factors, lifestyle recommendations. Reviewed immunization recommendations. Follow-up in 1 year for annual wellness. Prediabetes 01/07/2025 Assessment & Plan (01/07/2025 3:11 PM SITE SUPERVISING TECHNICAL OPERATOR): Reviewed prediabetes. Reviewed lifestyle recommendations. Patient information printed for his reference. Will recheck A1c upon return. Acute pain of right knee 01/07/2025 Assessment & Plan (01/07/2025 3:15 PM SITE SUPERVISING TECHNICAL OPERATOR): Recommend x-ray and physical therapy. Also offered referral to autism motor specialist. He declines today. States he will work on conservative measures at home. If not improving or worsening he is agreeable to follow up with autism motor specialist. We went ahead and place a referral so he will have it available p.r.n.. Need for influenza vaccination 09/26/2020 Assessment & Plan (09/26/2020 3:33 PM CDT): Flu vaccine given today. Discussed possible tenderness/redness at injection site. Gastroesophageal reflux disease without esophagi tis 06/19/2020 Assessment & Plan (01/07/2025 3:10 PM SITE SUPERVISING TECHNICAL OPERATOR): Has been well controlled on pantoprazole. For some reason was switched to Prevacid due to his insurance apparently. Of course we reviewed lifestyle recommendations. Will send in pantoprazole and see if he can get it at an affordable ruth. Assessment & Plan (12/27/2023 9:17 AM SITE SUPERVISING TECHNICAL OPERATOR): Symptoms well controlled with pantoprazole 40 mg [...] 06/17/2020 Assessment & Plan (12/27/2023 9:17 AM SITE SUPERVISING TECHNICAL OPERATOR): Reviewed previous lipid panel, will check fasting labs notify patient of results once received. Assessment & Plan (09/26/2020 3:55 PM CDT): 11/19/17 RL=659 HDL=41 OE=409 IDM=262 TC/HDL=5.5 06/17/20 DY=737 HDL=41 QH=488 UYZ=760 TC/HDL=6.2 09/20/20 XV=932 HDL=51 LH=654 DSI=805 TC/HDL=4.6 The 10-year ASCVD risk score (Cambridgejesse VARGHESE Jr., et al., 2013) is: 9.2% [...] & Plan (06/19/2020 8:41 AM CDT): 11/19/17 JL=388 HDL=41 BV=902 LBO=349 TC/HDL=5.5 06/17/20 OQ=193 HDL=41 XC=843 UCK=803 TC/HDL=6.2 HYM=614 Reviewed POCT results from today. Lipid panel abnormal. Reviewed lifestye/dietary changes necessary to improve. Discussed statin therapy if no improvement in 3 mos. Lab req given for him to repeat labs in 3 mos. BMI 28.0-28.9,adult 06/17/2020 Assessment & Plan (12/27/2023 9:17 AM SITE SUPERVISING TECHNICAL OPERATOR): Stable encouraged healthy diet and regular exercise. [...] 01/07/2019 Assessment & Plan (01/07/2025 3:09 PM SITE SUPERVISING TECHNICAL OPERATOR): Encouraged cutting back. Quit alcohol and will work on tobacco maybe later this year. Assessment & Plan (12/27/2023 9:17 AM SITE SUPERVISING TECHNICAL OPERATOR): Pre contemplative. Discussed nicotine replacement options and medications. Encouraged patient to reach out to the office when he is ready to quit and can prescribe Wellbutrin. Also encouraged use of nicotine replacement products to decrease amount of cigarettes smoked. Smoking history 20 pack years Assessment & Plan (09/25/2020 10:57 PM CDT): Precontemplative. Encouraged complete smoking cessation. Discussed different types of medications & utvs-mke-ehetahg aides to help with cessation. Assessment & Plan (06/19/2020 8:41 AM CDT): Precontemplative. Encouraged complete smoking cessation. Discussed different types of medications & ggbn-jwa-iywdiun aides to help with cessation. Resolved Problems Problem Noted Date Diagnosed Date Resolved Date Heartburn 12/02/1994 06/19/2020 Overview (03/08/2017): Heartburn Immunizations Immunization Administration Dates Next Due Influenza, Quadrivalent, Spl it, Preservative Free, Intramuscular 09/26/2020,12/16/2019,09/18/2018,09/17 Influenza, Trivalent, Preser vative Free, Intramuscular 01/07/2025 Influenza, Unspecified 12/27/2023(Deferr ed: Patient Refused),09/01/2023(Deferred: Patient Refused),09/01/2022(Deferred: Patient Refused),09/01/2021,10/31/2018, 018,12/03/2017(Deferred: Patient Refused),09/01/2017,09/01/2017, 017(Deferred: Patient Refused) Pneumococcal Polysaccharide PPV23 04/03/2022(Def erred: Patient Refused) Tdap 02/19/2023,05/08/2019,10/19/2016 Social History Tobacco Use Types Packs/Day Years [...] on file Legal Sex Male 6:28 PM SITE SUPERVISING TECHNICAL OPERATOR Gender Identity Not on file Sexual Orientation Not on file Last Filed Vital Signs Vital Sign Reading Time Taken Comments Blood Pressure 128/78 01/07/2025 2:10 PM SITE SUPERVISING TECHNICAL OPERATOR Pulse 102 01/07/2025 2:10 PM SITE SUPERVISING TECHNICAL OPERATOR Temperature 36.1 C (96.9 F) 01/07/2025 2:10 PM SITE SUPERVISING TECHNICAL OPERATOR Respiratory Rate 20 01/07/2025 2:10 PM SITE SUPERVISING TECHNICAL OPERATOR Oxygen Saturation 96% 01/07/2025 2:10 PM SITE SUPERVISING TECHNICAL OPERATOR Inhaled Oxygen Concentration - - Weight 86.4 kg (190 lb 6.4 oz) 01/07/2025 2:10 P M SITE SUPERVISING TECHNICAL OPERATOR Height 175.3 cm (5' 9.02 ) 01/07/2025 2:10 PM CS T Body Mass Index 28.1 01/07/2025 2:10 PM SITE SUPERVISING TECHNICAL OPERATOR Plan of Treatment Not on file Procedures Procedure Name Priority Date/Time Associated Diagnosis Comments POCT HEMOGLOBIN A1C Routine 01/07/2025 2 :50 PM SITE SUPERVISING TECHNICAL OPERATOR Prediabetes EGFR Routine 01/01/2025 8:25 AM SITE SUPERVISING TECHNICAL OPERATOR Lipid screening Routine general medical examination at [facility] DIFFERENTIAL AUTO Routine 01/01/2025 8:2 5 AM SITE SUPERVISING TECHNICAL OPERATOR Lipid screening Routine general medical examination at [facility] CBC WITH AUTO DIFFERENTIAL Routine 01/01/2025 8:25 AM SITE SUPERVISING TECHNICAL OPERATOR Lipid screening Routine general medical examination at [facility] facility COMPREHENSIVE METABOLIC PANEL Routine 01/01/2025 8:25 AM SITE SUPERVISING TECHNICAL OPERATOR Lipid screening Routine general medical examination at [facility] LIPID PANEL Routine 01/01/2025 8:25 AM SITE SUPERVISING TECHNICAL OPERATOR Lipid screening Routine general medical examination at [facility] COLONOSCOPY 01/11/2023 9:17 AM SITE SUPERVISING TECHNICAL OPERATOR from Last 3 Months or Most Recently Relevant to Health Maintenance Results * POCT hemoglobin A1c (01/07/2025 2:50 PM SITE SUPERVISING TECHNICAL OPERATOR) Hemoglobin A1C, POC 5.6 4.0 - 5.6 % Capillary blood 01/07/2025 2 :50 PM SITE SUPERVISING TECHNICAL OPERATOR Bettie Edward NP POINT OF CARE TEST ORDERAB LES Final Result * eGFR (01/01/2025 8:25 AM SITE SUPERVISING TECHNICAL OPERATOR) eGFR 83 >=60 mL/min/1. 73 m2 Comment: [...] was last reviewed 2021. Testing performed by: [address] [address] Blood 01/01/2025 8:25 AM SITE SUPERVISING TECHNICAL OPERATOR 01/01/2025 12:40 PM SITE SUPERVISING TECHNICAL OPERATOR Bettie Edward NP LAB BLOOD ORDERABLES Final Result ANGELA PAGE (KARTHIK) [address] [facility] Department [place] [address] * Differential, auto (01/01/2025 8:25 AM SITE SUPERVISING TECHNICAL OPERATOR) Pathologist [facility] Neutrophil abs 6.0 1.5 - 6.5 K/cumm Comment:Testing performed by : [facility], [address] [place] [address]., [address] Imm gran abs 0.0 0.0 - 0.1 K/cumm ANGELA PAGE (KARTHIK) Comment:Testing performed by : [facility], [address] [place] [address]., [address] Lymphocyte abs 2.3 0.8 - 3.3 K/cumm ANGELA PAGE (KARTHIK) Comment:Testing performed by : [address] [address] Monocyte abs 0.7 0.2 - 0.8 K/cumm [facility] ([place]) Comment:Testing performed by : [facility], [address] [place] [address]., [address] Eosinophil abs 0.2 0.0 - 0.5 K/cumm [facility] ([place]) Comment:Testing performed by : [facility], [address] [place] [address]., [address] Basophil abs 0.1 0.0 - 0.1 K/cumm [facility] ([place]) Comment:Testing performed by : [facility], [address] [place] [address]., [address] Neutrophil pct 65.5 % [facility] ([place]) Comment: Interpretive Data Percent cell count reference ranges are not reported, since discordance with absolute values may lead to misinterpretation of CBC data. Current Interpretive Data was last revised on 2018. Testing performed by: [address] [address] Imm gran pct 0.4 % [facility] ([place]) Comment: Interpretive Data Percent cell count reference ranges are not reported, since discordance with absolute values may lead to misinterpretation of CBC data. Current Interpretive Data was last revised on 2018. Testing performed by: [address] [address] Lymphocyte pct 24.8 % [facility] ([place]) Comment: Interpretive Data Percent cell count reference ranges are not reported, since discordance with absolute values may lead to misinterpretation of CBC data. Current Interpretive Data was last revised on 2018. Testing performed by: [facility], [address] [place] [address]., [address] Monocyte pct 7.2 % [facility] ([place]) Comment: Interpretive Data Percent cell count reference ranges are not reported, since discordance with absolute values may lead to misinterpretation of CBC data. Current Interpretive Data was last revised on 2018. Testing performed by: [address] [address] Eosinophil pct 1.6 % [facility] ([place]) Comment: Interpretive Data Percent cell count reference ranges are not reported, since discordance with absolute values may lead to misinterpretation of CBC data. Current Interpretive Data was last revised on 2018. Testing performed by: [address] [address] Basophil pct 0.5 % ANGELA PAGE (KARTHIK) Comment: Interpretive Data Percent cell count reference ranges are not reported, since discordance with absolute values may lead to misinterpretation of CBC data. Current Interpretive Data was last revised on 2018. Testing performed by: [address], [address] Blood 01/01/2025 8:25 AM SITE SUPERVISING TECHNICAL OPERATOR 01/01/2025 12:29 PM SITE SUPERVISING TECHNICAL OPERATOR Bettie Edward NP LAB BLOOD ORDERABLES Final Result ANGELA PAGE (KARTHIK) [address] [facility] Department [place] [address] * CBC with auto differential (01/01/2025 8:25 AM SITE SUPERVISING TECHNICAL OPERATOR) WBC 9.2 3.8 - 9.9 K/cumm Comment:Testing performed by : [address], [address] Hgb 16.0 13.0 - 17.5 g/dL [facility] ([place]) Comment:Testing performed by : [address], [address] Hct 48.7 38.9 - 50.3 % [facility] ([place]) Comment:Testing performed by : [address], [address] Plt 383 150 - 400 K/cumm [facility] ([place]) Comment:Testing performed by : [address], [address] MPV 10.0 9.1 - 12.3 fL [facility] ([place]) Comment:Testing performed by : [address], [address] RBC 5.38 4.30 - 5.80 M/cumm [facility] ([place]) Comment:Testing performed by : [address], [address] MCV 90.5 81.3 - 96.4 fL [facility] ([place]) Comment:Testing performed by : [facility], [address] [place] [address], [address] MCH 29.7 27.1 - 33.3 pg [facility] ([place]) Comment:Testing performed by : [facility], [address] [place] [address], [address] MCHC 32.9 32.3 - 35.7 g/dL [facility] ([place]) Comment:Testing performed by : [facility], [address] [place] [address], [address] RDW CV 12.2 11.1 - 14.9 % [facility] ([place]) Comment:Testing performed by : [facility], [address] [place] [address], [address] RDW SD 40.4 35.7 - 48.1 fL [facility] ([place]) Comment:Testing performed by : [facility], [address] [place] [address], [address] NRBC abs 0.00 0.00 - 0.01 K/cumm [facility] ([place]) Comment:Testing performed by : [facility], [address] [place] [address], [address] Blood 01/01/2025 8:25 AM SITE SUPERVISING TECHNICAL OPERATOR 01/01/2025 12:29 PM SITE SUPERVISING TECHNICAL OPERATOR Bettie Edward NATURAL FABRICATOR LAB BLOOD ORDERABLES Final Result ANGELA PAGE (KARTHIK) 1 [facility] Department [place] [address] * (ABNORMAL) Lipid panel (01/01/2025 8:25 AM SITE SUPERVISING TECHNICAL OPERATOR) Cholesterol 184 30 - 199 mg/dL Comment: [...] last revised on 2018. Testing performed by: [facility], [address] [place] [address]., [address] Triglycerides 152(H) <=149 mg/dL [facility] ([place]) Comment: Interpretive Data Ages < or [...] last revised on 2018. Testing performed by: [facility], [address] [place] [address]., [address] HDL 32(L) >=40 mg/dL [facility] ([place]) Comment: Interpretive Data Ages < or [...] last revised on 2018. Testing performed by: [facility], [address] [place] [address]., [address] LDL, calculated 125 <=129 mg/dL [facility] ([place]) Comment: Interpretive Data Ages < or [...] NCEP Expert Panel. Circulation 2004;110:227 3. Miles M et al. YANIV Cardiol. 2019April 01;5(5):540-548. doi: 10.1001/jamacardio.2020.0013 Current Interpretive Data was last revised on 2024. Testing performed by: [address] [address] Non-HDL Cholesterol 152 mg/dL ANGELA GARCIA) Comment: Interpretive Data Ages < or = [...] last revised on 2018. Testing performed by: [address] [address] Chol/HDL ratio 6 BRIAN PAGE (KARTHIK) Comment:Testing performed by : [address] [address] Blood 01/01/2025 8:25 AM SITE SUPERVISING TECHNICAL OPERATOR 01/01/2025 12:29 PM SITE SUPERVISING TECHNICAL OPERATOR us Bettie Edward NP LAB BLOOD ORDERABLES Final Result ANGELA PAGE (KARTHIK) 1 [facility] Department [place] [address] * Comprehensive metabolic panel (01/01/2025 8:25 AM SITE SUPERVISING TECHNICAL OPERATOR) [facility] Sodium 139 135 - 145 mmol/L Comment:Testing performed by : [facility], [address] [place] [address]., [address] Potassium, pl 4.4 3.3 - 4.9 mmol/L [facility] ([place]) Comment:Testing performed by : [facility], [address] [place] [address]., [address] Chloride 101 97 - 110 mmol/L [facility] ([place]) Comment:Testing performed by : [facility], [address] [place] [address]., [address] CO2 26 22 - 32 mmol/L [facility] ([place]) Comment:Testing performed by : [facility], [address] [place] [address], [address] Anion gap 12 2 - 15 mmol/L [facility] ([place]) Comment:Testing performed by : [facility], [address] [place] [address], [address] BUN 19 6 - 25 mg/dL [facility] ([place]) Comment:Testing performed by : [address], [address] Creatinine 1.09 0.80 - 1.30 mg/dL [facility] ([place]) Comment:Testing performed by : [address], [address] Glucose 112 70 - 199 mg/dL CERNER [...] was last revised 2022. Testing performed by: [address] [address] Calcium 9.4 8.5 - 10.3 mg/dL [facility] ([place]) Comment:Testing performed by : [address], [address] Bilirubin, total 0.3 0.1 - 1.2 mg/dL [facility] ([place]) Comment:Testing performed by : [facility], [address] [place] [address]., [address] Protein, pl 7.2 6.5 - 8.5 g/dL [facility] ([place]) Comment:Testing performed by : [facility], [address] [place] [address], [address] Albumin 4.2 3.5 - 5.0 g/dL [facility] ([place]) Comment:Testing performed by : [facility], [address] [place] [address], [address] Alk phos 96 40 - 130 Units/L [facility] ([place]) Comment:Testing performed by : [facility], [address] [place] [address], [address] ALT 25 7 - 55 Units/L [facility] ([place]) Comment:Testing performed by : [facility], [address] [place] [address], [address] AST 26 10 - 50 Units/L [facility] ([place]) Comment:Testing performed by : [facility], [address] [place] [address], [address] Blood 01/01/2025 8:25 AM SITE SUPERVISING TECHNICAL OPERATOR 01/01/2025 12:29 PM SITE SUPERVISING TECHNICAL OPERATOR Bettie Edward NP LAB BLOOD ORDERABLES Final Result [facility] ([place]) [facility] Department [place] [address] * COLONOSCOPY (01/11/2023 9:17 AM SITE SUPERVISING TECHNICAL OPERATOR) Anatomical Region Laterality Modality Other Narrative Procedure Note Makayla Oliver MD - 01/11/2023 9:17 AM CST [facility] Patient Name: Juan Merida Procedure Date: 01/11/2023 9:17 AM Date of : 1975 Admit Type: Outpatient Age: 47 Gender: Male Attending MD: Makayla Oliver M.D. Room: [facility] ENDOSCOPY ROOM 1 Note Status: Finalized Patient Profile: This is a 47 year old male. No family history ofcolon cancer. Screening. Procedure: Colonoscopy Indications: Screening for colorectal malignant neoplasm, Thisis the patient's first colonoscopy Referring MD: Dillon Kennedy M.D. Providers: Makayla Olievr M.D. Impression: - The entire examined colon [...] scope was passed under direct vision. TheColonoscope [id number] was introduced through the anus and advanced [...] The hemorrhoids were medium-sized. Electronically signed by Makayla Oliver M.D. Makayla Oliver M.D. 01/11/2023 11:35:21 AM Number of Addenda: 0 Note Initiated On: 01/11/2023 9:17 AM Procedure Code(s): --- Professional --- 13403, Colonoscopy, flexible; diagnostic, including collection of specimen(s) by brushing or washing, when performed (separateprocedure) Diagnosis Code(s): --- Professional --- Z12.11, Encounter for screening for malignant neoplasm of colon K64.8, Other hemorrhoids CPT copyright 2020 [employer]. All rights reserved. The codes documented in this report are preliminary and upon video games mechanic reviewmay be revised to meet current compliance requirements. Recognized by the [place] [employer] for promoting quality in endoscopy Makayla Oliver MD ENDOSCOPY PROCEDURES Final Result from Last 3 Months or Most Recently Relevant to Health Maintenance Insurance [facility] A[employer]NA SELECT AETNA COVENTRY HMO/POS Advance Directives For more information, please contact: [phone] * Full Code (Latest Code Status on File) Date Activated Date Inactivated Comments 01/11/2023 9:36 AM 01/11/2023 4:34 PM * Full Code Date Activated Date Inactivated Comments 01/11/2023 9:35 AM 01/11/2023 9:36 AM Care Teams Care Process Manager Relationship Specialty Start Date End Date Dillon Kennedy MD [address] [place] [address] PCP - General 11/22/15 Alicia Seay, PT Physical Therapist Physical Therapy 12/30/17
--- OUTSIDE RECORDS SUMMARY | 2025-02-08 19:24 | XMS_ITS | Encounter Summary ---
Author Organization [facility] Address 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
--- OUTSIDE RECORDS SUMMARY | 2025-02-08 19:24 | XMS_ITS | Clinical Summary ---
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
== END 2025-02-08 20:12 | disposition home or self-care (01) ==
PROVIDERS: Emergency Provider Registered Nurse; PCP Family Medicine
DX: M50.322 Other cervical disc degeneration at C5-C6 level (principal); M50.323 Other cervical disc degeneration at C6-C7 level; M48.02 Spinal stenosis, cervical region; K21.9 Gastro-esophageal reflux disease without esophagitis; F17.210 Nicotine dependence, cigarettes, uncomplicated
CPT/HCPCS: 72050; 99213; G0463